=== PATIENT | male | born 1940 | race Caucasian/White ===

== ENCOUNTER 2024-03-10 10:01 | Emergency (ER) | payer MEDICARE, OTHER ==
[~2024-03-10] VITALS: Ht 182.9 cm; Wt 81.8 kg
[2024-03-10 10:10] VITALS: TEMP 97
[2024-03-10] MEDS ORDERED: SULFA (10:15)
[2024-03-10 13:59] LABS: BASOPHILS % (AUTO) 0.3 % (0-1); EOSINOPHILS % (AUTO) 0.4 % (0-6); HEMOGLOBIN 12.7 g/dl (14.0-17.9); LYMPHOCYTES # (AUTO) 0.6 X10'3 (1.1-4.8); LYMPHOCYTES % (AUTO) 5.4 % (21-51); MEAN CORPUSCULAR HGB CONC 31.7 g/dL (33.0-36.5); MEAN CORPUSCULAR VOLUME 78.8 FL (78-98); MEAN PLATELET VOLUME 7.2 FL (7.4-10.4); MONOCYTES # (AUTO) 0.3 X10'3 (0-0.9); MONOCYTES % (AUTO) 2.7 % (2-12); NEUTROPHILS # (AUTO) 10.4 X10'3 (1.8-7.7); NEUTROPHILS % (AUTO) 91.2 % (42-75); PLATELET COUNT 250 X10'3 (140-440); RED BLOOD COUNT 5.07 X10'6 (4.70-6.10); RED CELL DISTRIBUTION WIDTH 17.6 % (11.5-14.5); WHITE BLOOD COUNT 11.4 X10'3 (4.5-11.0)
[2024-03-10 14:25] LABS: ANION GAP 11 (8-16); BLOOD UREA NITROGEN 17 MG/DL (7-18); BUN/CREATININE RATIO 20.2 (10.0-20.0); CALCIUM 8.5 MG/DL (8.5-10.1); CHLORIDE 107 MMOL/L (99-107); CREATININE 0.84 MG/DL (0.60-1.10); GLUCOSE 139 MG/DL (70-104); PRO BRAIN NATRIURETIC PEPTIDE 230 PG/ML (0-450); SODIUM 145 MMOL/L (135-145); TOTAL CARBON DIOXIDE 27.1 MMOL/L (24-32); eCRCL 72 ML/MIN; eGFR 87 ML/MIN
[2024-03-10] MEDS ORDERED: APIX5TAB3 PO (14:57)
[2024-03-10] MEDS: apixaban 5mg tablet PO STA (15:27)
[2024-03-10 15:31] VITALS: BP 168/76; PULSE 67; RESP 16; O2SAT 97
== END 2024-03-10 15:41 | disposition home or self-care (01) ==
LOC: ER 10:03
DX: I82.421 Acute embolism and thrombosis of right iliac vein (principal); E78.00 Pure hypercholesterolemia, unspecified; I10 Essential (primary) hypertension
CPT/HCPCS: 36415; 71045; 80048; 83880; 85025; 93005; 93971; 99285

== ENCOUNTER 2024-06-18 09:45 | Inpatient (IN) | payer MEDICARE, OTHER ==
[~2024-06-18] VITALS: Ht 182.9 cm; Wt 82.7 kg
[~2024-06-18 09:45] MED LIST: APIX5TAB3 PO; SULFA
[2024-06-18 10:46] LABS: BASOPHILS # (AUTO) 0.1 X10'3 (0-0.2); BASOPHILS % (AUTO) 0.6 % (0-1); EOSINOPHILS # (AUTO) 0.2 X10'3 (0-0.9); EOSINOPHILS % (AUTO) 1.8 % (0-6); LYMPHOCYTES % (AUTO) 10.1 % (21-51); MEAN PLATELET VOLUME 6.8 FL (7.4-10.4); MONOCYTES # (AUTO) 0.5 X10'3 (0-0.9); MONOCYTES % (AUTO) 5.1 % (2-12); NEUTROPHILS # (AUTO) 7.8 X10'3 (1.8-7.7); NEUTROPHILS % (AUTO) 82.4 % (42-75); PLATELET COUNT 358 X10'3 (140-440); WHITE BLOOD COUNT 9.5 X10'3 (4.5-11.0)
[2024-06-18 10:53] LABS: ALANINE AMINOTRANSFERASE 13 U/L (12-78); ALBUMIN 2.9 G/DL (3.4-5.0); ALKALINE PHOSPHATASE 80 IU/L (46-116); ANION GAP 10 (8-16); ASPARTATE AMINO TRANSFERASE 10 U/L (10-37); BLOOD UREA NITROGEN 16 MG/DL (7-18); BUN/CREATININE RATIO 17.6 (10.0-20.0); CALCIUM 8.5 MG/DL (8.5-10.1); CHLORIDE 107 MMOL/L (99-107); CREATININE 0.91 MG/DL (0.60-1.10); GLUCOSE 110 MG/DL (70-104); LIPASE 22 U/L (16-77); POTASSIUM 3.7 MMOL/L (3.5-5.1); SODIUM 141 MMOL/L (135-145); TOTAL CARBON DIOXIDE 24.2 MMOL/L (24-32); TOTAL PROTEIN 5.8 G/DL (6.4-8.2); eCRCL 65 ML/MIN; eGFR 79 ML/MIN
[2024-06-18 11:02] LABS: BILIRUBIN,TOTAL 0.3 MG/DL (0.1-1.0)
[2024-06-18 11:12] LABS: HEMATOCRIT 25.5 % (42.0-52.0); HEMOGLOBIN 7.9 g/dl (14.0-17.9); MEAN CORPUSCULAR HEMOGLOBIN 21.2 PG (27.0-31.0); MEAN CORPUSCULAR HGB CONC 30.9 g/dL (33.0-36.5); MEAN CORPUSCULAR VOLUME 68.5 FL (78-98); RED BLOOD COUNT 3.72 X10'6 (4.70-6.10); RED CELL DISTRIBUTION WIDTH 19.9 % (11.5-14.5)
[2024-06-18 11:33] LABS: PLATELET ESTIMATE NORMAL; POLYCHROMASIA 1+
[2024-06-18 11:34] LABS: ANISOCYTOSIS 2+; ELLIPTOCYTES FEW; HYPOCHROMASIA 2+; MICROCYTOSIS 2+; TEAR DROP CELLS FEW
[2024-06-18 14:07] LABS: PROTHROMBIN TIME 10.6 SECONDS (9.0-12.0)
[2024-06-18] MEDS ORDERED: magnesium sulf-water 4G/100mL 100 ML IV PRN (14:55)
[2024-06-18] MEDS ORDERED: HYDROcodone/acetaminophen 5mg/325mg tablet PO PRN (14:55)
[2024-06-18] MEDS ORDERED: morphine 2 MG/ML inj. syringe IV PRN (14:55)
[2024-06-18] MEDS ORDERED: potassium Cl 40MEQ/1/2NS 520ml 520 ML IV PRN (14:55)
[2024-06-18] MEDS ORDERED: magnesium sulf-water 2g/50mL 50 ML IV PRN (14:55)
[2024-06-18] MEDS ORDERED: acetaminophen 325mg tablet PO PRN ×2 (14:55)
[2024-06-18] MEDS ORDERED: potassium Cl 20 mEq SR tablet PO PRN (14:55)
[2024-06-18] MEDS: normal saline 1000ml 1,000 ML IV SCH (15:14)
[2024-06-18 17:04] LABS: OCCULT BLOOD STOOL NEGATIVE (Neg)
[2024-06-18 17:14] LABS: BILIRUBIN,URINE NEGATIVE (Neg); CLARITY,URINE CLEAR (Clear); COLOR,URINE YELLOW (Yellow); GLUCOSE, URINE NEGATIVE (Neg); KETONES,URINE TRACE mg/dl (Neg); LEUKOCYTE ESTERASE ,URINE SMALL (Neg); NITRITES, URINE NEGATIVE (Neg); OCCULT BLOOD,URINE NEGATIVE (Neg); PH,URINE 6.5 (4.8-8.0); PROTEIN,URINE NEGATIVE (Neg); UROBILINOGEN,URINE 0.2 E.U/dL (0.2-1.0)
[2024-06-18 17:15] LABS: UA COLLECTION TYPE VOIDED
[2024-06-18 17:19] LABS: BACTERIA,URINE FEW /HPF (Neg); FINE GRANULAR CAST 0-3 /LPF (NEGATIVE); MUCUS STRANDS NONE SEEN /LPF (Neg); RBC,URINE 0-2 /HPF (0-2); SQUAMOUS EPITHELIAL CELL,UR NONE SEEN /LPF (FEW); TRANSITIONAL EPI CELLS,URINE FEW /HPF
[2024-06-18 18:44] LABS: ABSOLUTE RETICS # 79200 /CUMM (23000-93000); HEMATOCRIT 25.5 % (42.0-52.0); HEMOGLOBIN 7.6 g/dl (14.0-17.9); MEAN CORPUSCULAR HEMOGLOBIN 20.1 PG (27.0-31.0); MEAN CORPUSCULAR HGB CONC 29.9 g/dL (33.0-36.5); MEAN CORPUSCULAR VOLUME 67.3 FL (78-98); MEAN PLATELET VOLUME 6.8 FL (7.4-10.4); PLATELET COUNT 346 X10'3 (140-440); RED BLOOD COUNT 3.79 X10'6 (4.70-6.10); RETICULOCYTE % (AUTO) 2.1 % (0.5-1.5); WHITE BLOOD COUNT 7.5 X10'3 (4.5-11.0)
[2024-06-18] MEDS: K and/or MAG REPLACEMENT MC SCH (20:00)
[2024-06-18 20:04] LABS: FERRITIN 17 NG/ML (26-388)
[2024-06-18] MEDS: pantoprazole 40 MG vial IV SCH (20:22)
[2024-06-19] VITALS (7 sets, daily range): BP systolic 144–169; BP diastolic 53–83; PULSE 54–73; RESP 12–18; TEMP 97.4–98.6; O2SAT 96–98
[2024-06-19] MEDS ORDERED: NO HOME MEDS (06:09)
[2024-06-19 07:07] LABS: BASOPHILS # (AUTO) 0.1 X10'3 (0-0.2); BASOPHILS % (AUTO) 0.8 % (0-1); EOSINOPHILS # (AUTO) 0.2 X10'3 (0-0.9); EOSINOPHILS % (AUTO) 2.3 % (0-6); HEMATOCRIT 25.3 % (42.0-52.0); HEMOGLOBIN 7.6 g/dl (14.0-17.9); LYMPHOCYTES # (AUTO) 1.8 X10'3 (1.1-4.8); LYMPHOCYTES % (AUTO) 21.1 % (21-51); MEAN CORPUSCULAR HEMOGLOBIN 20.1 PG (27.0-31.0); MEAN CORPUSCULAR HGB CONC 29.8 g/dL (33.0-36.5); MEAN CORPUSCULAR VOLUME 67.6 FL (78-98); MEAN PLATELET VOLUME 6.8 FL (7.4-10.4); MONOCYTES # (AUTO) 0.7 X10'3 (0-0.9); MONOCYTES % (AUTO) 8.7 % (2-12); NEUTROPHILS # (AUTO) 5.6 X10'3 (1.8-7.7); NEUTROPHILS % (AUTO) 67.1 % (42-75); PLATELET COUNT 338 X10'3 (140-440); RED BLOOD COUNT 3.75 X10'6 (4.70-6.10); RED CELL DISTRIBUTION WIDTH 20.1 % (11.5-14.5); WHITE BLOOD COUNT 8.3 X10'3 (4.5-11.0)
[2024-06-19 07:25] LABS: ALANINE AMINOTRANSFERASE 11 U/L (12-78); ALBUMIN 2.6 G/DL (3.4-5.0); ALBUMIN/GLOBULIN RATIO 0.9 (1.1-1.5); ALKALINE PHOSPHATASE 70 IU/L (46-116); ANION GAP 6 (8-16); ASPARTATE AMINO TRANSFERASE 11 U/L (10-37); BILIRUBIN,TOTAL 0.3 MG/DL (0.1-1.0); BLOOD UREA NITROGEN 11 MG/DL (7-18); BUN/CREATININE RATIO 12.6 (10.0-20.0); CHLORIDE 111 MMOL/L (99-107); CHOL/HDL RATIO 4.4 (0.00-4.99); CHOLESTEROL 223 MG/DL (0-200); CREATININE 0.87 MG/DL (0.60-1.10); GLUCOSE 80 MG/DL (70-104); HDL CHOLESTEROL 51 MG/DL (35-60); MAGNESIUM 2.4 MG/DL (1.5-2.4); POTASSIUM 3.8 MMOL/L (3.5-5.1); SODIUM 142 MMOL/L (135-145); TOTAL CARBON DIOXIDE 24.9 MMOL/L (24-32); TOTAL PROTEIN 5.6 G/DL (6.4-8.2); TRIGLYCERIDES 99 MG/DL (20-135); eCRCL 68 ML/MIN; eGFR 83 ML/MIN
[2024-06-19 07:41] LABS: LDL CHOLESTEROL 150 MG/DL (50-100)
[2024-06-19] MEDS: CefTRIAXone 2gm/D5W 50ml BAG 50 ML IV SCH (08:56)
[2024-06-19] MEDS: ferrous sulfate 325mg tablet PO SCH (08:56)
[2024-06-19 09:54] LABS: % IRON SATURATION 3 % (11-46); IRON 9 UG/DL (53-167); TOTAL IRON BINDING CAPACITY 323 UG/DL (259-388)
[2024-06-19] MEDS ORDERED: iron dextran complex inj. 25 MG in normal saline 50ml IV soln 49.5 ML IV ONE (10:40)
[2024-06-19] MEDS: iron dextran complex inj. 25 MG in normal saline 100ml IV soln 100 ML IV ONE (11:15)
[2024-06-19] MEDS: iron dextran complex inj. 75 MG in normal saline 100ml IV soln 100 ML IV ONE (12:53)
[2024-06-19 21:05] LABS: HEMATOCRIT 30.4 % (42.0-52.0); HEMOGLOBIN 9.3 g/dl (14.0-17.9); MEAN CORPUSCULAR HEMOGLOBIN 21.4 PG (27.0-31.0); MEAN CORPUSCULAR HGB CONC 30.5 g/dL (33.0-36.5); MEAN CORPUSCULAR VOLUME 70.3 FL (78-98); MEAN PLATELET VOLUME 6.4 FL (7.4-10.4); PLATELET COUNT 319 X10'3 (140-440); RED BLOOD COUNT 4.32 X10'6 (4.70-6.10); RED CELL DISTRIBUTION WIDTH 22.7 % (11.5-14.5); WHITE BLOOD COUNT 8.3 X10'3 (4.5-11.0)
[2024-06-19 21:21] LABS: % IRON SATURATION 20 % (11-46); IRON 69 UG/DL (53-167); TOTAL IRON BINDING CAPACITY 345 UG/DL (259-388)
[2024-06-20] VITALS (15 sets, daily range): BP systolic 115–185; BP diastolic 47–90; PULSE 60–71; RESP 13–16; TEMP 97.9–98.9; O2SAT 95–98
[2024-06-20 06:00] LABS: BASOPHILS # (AUTO) 0.1 X10'3 (0-0.2); BASOPHILS % (AUTO) 0.7 % (0-1); EOSINOPHILS # (AUTO) 0.2 X10'3 (0-0.9); EOSINOPHILS % (AUTO) 3.2 % (0-6); HEMATOCRIT 29.1 % (42.0-52.0); HEMOGLOBIN 9.1 g/dl (14.0-17.9); LYMPHOCYTES % (AUTO) 13.2 % (21-51); MEAN CORPUSCULAR HEMOGLOBIN 21.8 PG (27.0-31.0); MEAN CORPUSCULAR HGB CONC 31.3 g/dL (33.0-36.5); MEAN CORPUSCULAR VOLUME 69.6 FL (78-98); MEAN PLATELET VOLUME 6.3 FL (7.4-10.4); MONOCYTES # (AUTO) 0.6 X10'3 (0-0.9); MONOCYTES % (AUTO) 8.1 % (2-12); NEUTROPHILS # (AUTO) 5.8 X10'3 (1.8-7.7); NEUTROPHILS % (AUTO) 74.8 % (42-75); PLATELET COUNT 313 X10'3 (140-440); RED BLOOD COUNT 4.19 X10'6 (4.70-6.10); RED CELL DISTRIBUTION WIDTH 22.8 % (11.5-14.5); WHITE BLOOD COUNT 7.8 X10'3 (4.5-11.0)
[2024-06-20 06:17] LABS: ALANINE AMINOTRANSFERASE 12 U/L (12-78); ALBUMIN 2.6 G/DL (3.4-5.0); ALBUMIN/GLOBULIN RATIO 0.9 (1.1-1.5); ALKALINE PHOSPHATASE 73 IU/L (46-116); ANION GAP 9 (8-16); ASPARTATE AMINO TRANSFERASE 15 U/L (10-37); BILIRUBIN,TOTAL 0.4 MG/DL (0.1-1.0); BLOOD UREA NITROGEN 8 MG/DL (7-18); CALCIUM 7.6 MG/DL (8.5-10.1); CHLORIDE 110 MMOL/L (99-107); GLUCOSE 84 MG/DL (70-104); POTASSIUM 3.3 MMOL/L (3.5-5.1); SODIUM 141 MMOL/L (135-145); TOTAL CARBON DIOXIDE 22.4 MMOL/L (24-32); TOTAL PROTEIN 5.4 G/DL (6.4-8.2); eCRCL 74 ML/MIN; eGFR > 90 ML/MIN
[2024-06-20] MEDS: CefTRIAXone 2gm/D5W 50ml BAG 50 ML IV SCH (08:00)
[2024-06-20] MEDS: iron dextran complex inj. 100 MG in normal saline 100ml IV soln 98 ML IV SCH (08:23)
[2024-06-20] MEDS: HYDROcodone/acetaminophen 10/325mg tab PO PRN (11:42)
[2024-06-20] MEDS ORDERED: MIDAZolam 1 MG/ML 5ML VIAL ONE (14:47)
[2024-06-20] MEDS ORDERED: LIDOcaine 2% Viscous 15ml cup ONE (14:47)
[2024-06-20] MEDS ORDERED: fentaNYL/PF 50MCG/1 ML 2ML syringe ONE (14:47)
[2024-06-20] MEDS ORDERED: simethicone 40mg/0.6ml oral drops 30ml ONE (15:20)
[2024-06-20] MEDS: potassium Cl 20 mEq SR tablet PO PRN (19:40)
[2024-06-21 05:40] LABS: BASOPHILS # (AUTO) 0.1 X10'3 (0-0.2); BASOPHILS % (AUTO) 0.8 % (0-1); EOSINOPHILS # (AUTO) 0.3 X10'3 (0-0.9); EOSINOPHILS % (AUTO) 2.6 % (0-6); HEMATOCRIT 31.8 % (42.0-52.0); HEMOGLOBIN 9.8 g/dl (14.0-17.9); LYMPHOCYTES # (AUTO) 1.2 X10'3 (1.1-4.8); LYMPHOCYTES % (AUTO) 11.2 % (21-51); MEAN CORPUSCULAR HEMOGLOBIN 21.6 PG (27.0-31.0); MEAN CORPUSCULAR HGB CONC 30.9 g/dL (33.0-36.5); MEAN CORPUSCULAR VOLUME 69.8 FL (78-98); MEAN PLATELET VOLUME 6.4 FL (7.4-10.4); MONOCYTES # (AUTO) 0.7 X10'3 (0-0.9); MONOCYTES % (AUTO) 6.6 % (2-12); NEUTROPHILS # (AUTO) 8.4 X10'3 (1.8-7.7); NEUTROPHILS % (AUTO) 78.8 % (42-75); PLATELET COUNT 343 X10'3 (140-440); RED BLOOD COUNT 4.56 X10'6 (4.70-6.10); RED CELL DISTRIBUTION WIDTH 23.1 % (11.5-14.5); WHITE BLOOD COUNT 10.7 X10'3 (4.5-11.0)
[2024-06-21 06:00] VITALS: BP 157/54; PULSE 74; RESP 14; TEMP 97.3; O2SAT 97
[2024-06-21 06:00] LABS: ALANINE AMINOTRANSFERASE 12 U/L (12-78); ALBUMIN 2.6 G/DL (3.4-5.0); ALBUMIN/GLOBULIN RATIO 0.8 (1.1-1.5); ALKALINE PHOSPHATASE 81 IU/L (46-116); ANION GAP 10 (8-16); ASPARTATE AMINO TRANSFERASE 8 U/L (10-37); BILIRUBIN,TOTAL 0.2 MG/DL (0.1-1.0); BLOOD UREA NITROGEN 10 MG/DL (7-18); CALCIUM 8.5 MG/DL (8.5-10.1); CHLORIDE 109 MMOL/L (99-107); CREATININE 0.83 MG/DL (0.60-1.10); GLUCOSE 84 MG/DL (70-104); MAGNESIUM 2.2 MG/DL (1.5-2.4); SODIUM 141 MMOL/L (135-145); TOTAL CARBON DIOXIDE 22.3 MMOL/L (24-32); TOTAL PROTEIN 5.7 G/DL (6.4-8.2); eCRCL 71 ML/MIN; eGFR 88 ML/MIN
[2024-06-21 08:00] VITALS: RESP 14; O2SAT 97
[2024-06-21] MEDS: iron dextran complex inj. 100 MG in normal saline 100ml IV soln 100 ML IV SCH (09:26)
[2024-06-21 09:29] LABS: PLATELET ESTIMATE NORMAL
[2024-06-21 09:30] LABS: HYPOCHROMASIA 1+
[2024-06-21 09:31] LABS: ANISOCYTOSIS 3+; MICROCYTOSIS 2+; POLYCHROMASIA FEW; TEAR DROP CELLS FEW
[2024-06-21 10:00] VITALS: BP 133/51; PULSE 75; RESP 16; TEMP 98.8; O2SAT 95
[2024-06-21] MEDS ORDERED: iohexol 300mg/ml 100ml inj. ONE (16:16)
[2024-06-21 18:00] VITALS: BP 193/71; PULSE 93; RESP 18; TEMP 99; O2SAT 97
[2024-06-21] MEDS: hydrALAZINE 20mg/ml inj. IV PRN (19:26)
[2024-06-21 22:00] VITALS: BP 109/53; PULSE 77; RESP 14; TEMP 98.4; O2SAT 96
[2024-06-22 06:00] VITALS: BP 112/61; PULSE 74; RESP 13; TEMP 97.3; O2SAT 96
[2024-06-22 06:28] LABS: BASOPHILS % (AUTO) 0.4 % (0-1); EOSINOPHILS # (AUTO) 0.3 X10'3 (0-0.9); HEMATOCRIT 30.5 % (42.0-52.0); HEMOGLOBIN 9.5 g/dl (14.0-17.9); LYMPHOCYTES % (AUTO) 9.3 % (21-51); MEAN CORPUSCULAR HEMOGLOBIN 22.1 PG (27.0-31.0); MEAN CORPUSCULAR HGB CONC 31.2 g/dL (33.0-36.5); MEAN CORPUSCULAR VOLUME 70.7 FL (78-98); MEAN PLATELET VOLUME 6.6 FL (7.4-10.4); MONOCYTES % (AUTO) 8.9 % (2-12); NEUTROPHILS # (AUTO) 8.4 X10'3 (1.8-7.7); NEUTROPHILS % (AUTO) 78.4 % (42-75); PLATELET COUNT 302 X10'3 (140-440); RED BLOOD COUNT 4.31 X10'6 (4.70-6.10); RED CELL DISTRIBUTION WIDTH 24.2 % (11.5-14.5); WHITE BLOOD COUNT 10.8 X10'3 (4.5-11.0)
[2024-06-22 06:57] LABS: ALANINE AMINOTRANSFERASE 11 U/L (12-78); ALBUMIN 2.6 G/DL (3.4-5.0); ALBUMIN/GLOBULIN RATIO 0.9 (1.1-1.5); ALKALINE PHOSPHATASE 73 IU/L (46-116); ANION GAP 8 (8-16); ASPARTATE AMINO TRANSFERASE 9 U/L (10-37); BILIRUBIN,TOTAL 0.3 MG/DL (0.1-1.0); BLOOD UREA NITROGEN 9 MG/DL (7-18); BUN/CREATININE RATIO 11.7 (10.0-20.0); CALCIUM 8.3 MG/DL (8.5-10.1); CHLORIDE 110 MMOL/L (99-107); CREATININE 0.77 MG/DL (0.60-1.10); GLUCOSE 106 MG/DL (70-104); MAGNESIUM 2.1 MG/DL (1.5-2.4); POTASSIUM 3.3 MMOL/L (3.5-5.1); SODIUM 142 MMOL/L (135-145); TOTAL CARBON DIOXIDE 23.9 MMOL/L (24-32); TOTAL PROTEIN 5.5 G/DL (6.4-8.2); eCRCL 77 ML/MIN; eGFR > 90 ML/MIN
[2024-06-22 08:00] VITALS: RESP 18; O2SAT 95
[2024-06-22] MEDS: morphine 2 MG/ML inj. syringe IV PRN (09:44)
[2024-06-22 10:00] VITALS: BP 132/63; PULSE 76; RESP 20; TEMP 97.9; O2SAT 95
[2024-06-22 18:00] VITALS: BP 133/48; PULSE 79; RESP 14; TEMP 98.9; O2SAT 94
[2024-06-22] MEDS ORDERED: potassium Cl 40MEQ/1/2NS 520ml 520 ML IV PRN (20:05)
[2024-06-22] MEDS ORDERED: potassium Cl 20 mEq SR tablet PO PRN (20:05)
[2024-06-22] MEDS ORDERED: magnesium sulf-water 2g/50mL 50 ML IV PRN (20:05)
[2024-06-22] MEDS ORDERED: magnesium Cl slow-release 64mg tablet PO PRN (20:05)
[2024-06-22] MEDS ORDERED: magnesium sulf-water 4G/100mL 100 ML IV PRN (20:05)
[2024-06-22] MEDS: potassium Cl 20 mEq SR tablet PO PRN (20:15)
[2024-06-22] MEDS: pantoprazole 40mg Tablet.DR PO SCH (20:16)
[2024-06-22 22:00] VITALS: BP 168/73; PULSE 79; RESP 18; TEMP 98.8; O2SAT 96
[2024-06-23 06:00] VITALS: BP 152/68; PULSE 74; RESP 13; TEMP 97.2; O2SAT 96
[2024-06-23 07:46] LABS: BASOPHILS # (AUTO) 0.1 X10'3 (0-0.2); BASOPHILS % (AUTO) 0.5 % (0-1); EOSINOPHILS # (AUTO) 0.4 X10'3 (0-0.9); EOSINOPHILS % (AUTO) 3.5 % (0-6); HEMATOCRIT 30.3 % (42.0-52.0); HEMOGLOBIN 9.3 g/dl (14.0-17.9); LYMPHOCYTES # (AUTO) 0.9 X10'3 (1.1-4.8); LYMPHOCYTES % (AUTO) 8.5 % (21-51); MEAN CORPUSCULAR HGB CONC 30.8 g/dL (33.0-36.5); MEAN CORPUSCULAR VOLUME 71.4 FL (78-98); MEAN PLATELET VOLUME 6.9 FL (7.4-10.4); MONOCYTES # (AUTO) 0.8 X10'3 (0-0.9); MONOCYTES % (AUTO) 7.5 % (2-12); NEUTROPHILS # (AUTO) 8.2 X10'3 (1.8-7.7); PLATELET COUNT 286 X10'3 (140-440); RED BLOOD COUNT 4.25 X10'6 (4.70-6.10); RED CELL DISTRIBUTION WIDTH 24.8 % (11.5-14.5); WHITE BLOOD COUNT 10.3 X10'3 (4.5-11.0)
[2024-06-23] MEDS: K and/or MAG REPLACEMENT MC SCH (08:00)
[2024-06-23 08:02] LABS: ALANINE AMINOTRANSFERASE 13 U/L (12-78); ALBUMIN 2.4 G/DL (3.4-5.0); ALBUMIN/GLOBULIN RATIO 0.8 (1.1-1.5); ALKALINE PHOSPHATASE 69 IU/L (46-116); ANION GAP 6 (8-16); ASPARTATE AMINO TRANSFERASE 12 U/L (10-37); BILIRUBIN,TOTAL 0.3 MG/DL (0.1-1.0); BLOOD UREA NITROGEN 8 MG/DL (7-18); BUN/CREATININE RATIO 9.6 (10.0-20.0); CALCIUM 8.2 MG/DL (8.5-10.1); CHLORIDE 113 MMOL/L (99-107); CREATININE 0.83 MG/DL (0.60-1.10); GLUCOSE 105 MG/DL (70-104); POTASSIUM 4.2 MMOL/L (3.5-5.1); SODIUM 143 MMOL/L (135-145); TOTAL CARBON DIOXIDE 24.1 MMOL/L (24-32); TOTAL PROTEIN 5.3 G/DL (6.4-8.2); eCRCL 71 ML/MIN; eGFR 88 ML/MIN
[2024-06-23] MEDS: ondansetron/PF 4mg/2ml inj IV PRN (08:48)
[2024-06-23 09:18] LABS: PLATELET ESTIMATE NORMAL
[2024-06-23 09:19] LABS: ANISOCYTOSIS 3+; ELLIPTOCYTES FEW; HYPOCHROMASIA 1+; MICROCYTOSIS 1+; POLYCHROMASIA FEW; SCHISTOCYTES FEW
[2024-06-23 10:00] VITALS: BP 136/68; PULSE 80; RESP 14; TEMP 98.2; O2SAT 96
[2024-06-23] MEDS ORDERED: lactulose 20gm/30ml cup PO PRN (10:25)
[2024-06-23] MEDS ORDERED: magnesium hydroxide 30ml (MOM) UD suspension PO PRN (10:25)
[2024-06-23] MEDS: atorvastatin 20mg tablet PO SCH (11:43)
[2024-06-23 19:00] VITALS: BP 125/74; PULSE 69; RESP 18; TEMP 98.3; O2SAT 96
[2024-06-23] MEDS: docusate sod 100mg capsule PO SCH (19:44)
[2024-06-23] MEDS: apixaban 2.5mg tablet PO SCH (20:18)
[2024-06-23 22:00] VITALS: BP 144/62; PULSE 66; RESP 16; TEMP 98.5; O2SAT 95
[2024-06-24 06:00] VITALS: BP 145/47; PULSE 69; RESP 17; TEMP 98; O2SAT 94
[2024-06-24 08:00] VITALS: RESP 17; O2SAT 94
[2024-06-24 10:00] VITALS: BP 132/63; PULSE 71; RESP 15; TEMP 97.9; O2SAT 96
[2024-06-24 17:08] VITALS: RESP 16
[2024-06-24] MEDS ORDERED: APIX2.5T PO (17:15)
[2024-06-24] MEDS ORDERED: ATOR20TA66 PO (17:15)
== END 2024-06-24 17:30 | disposition home health service (06) | DRG 378 ==
LOC: ER 09:45 → ED HOLD 14:59 → ORTHO 4S 06-19 14:16
PROVIDERS: ADMIT Nurse Practitioner Family; ATTEND Nurse Practitioner Family
PROC: 30233N1 Transfusion of Nonautologous Red Blood Cells into Peripheral Vein, Percutaneous Approach (ICD-10-PCS; 2024-06-19)
PROC: 0W3P8ZZ Control Bleeding in Gastrointestinal Tract, Via Natural or Artificial Opening Endoscopic (ICD-10-PCS; principal; 2024-06-20)
DX: K31.811 Angiodysplasia of stomach and duodenum with bleeding (principal); D62 Acute posthemorrhagic anemia; N13.8 Other obstructive and reflux uropathy; I82.411 Acute embolism and thrombosis of right femoral vein; K21.01 Gastro-esophageal reflux disease with esophagitis, with bleeding; E78.00 Pure hypercholesterolemia, unspecified; I10 Essential (primary) hypertension; E87.6 Hypokalemia; N40.1 Benign prostatic hyperplasia with lower urinary tract symptoms; Z88.2 Allergy status to sulfonamides; Z79.01 Long term (current) use of anticoagulants; Z86.718 Personal history of other venous thrombosis and embolism; Z87.891 Personal history of nicotine dependence
CPT/HCPCS: 36415; 36430; 43255; 74178; 76770; 80053; 80061; 81001; 82272; 82728; 83540; 83550; 83690; 83735; 84153; 85008; 85025; 85027; 85045; 85610; 86885; 86900; 86901; 86920; 87081; 87088; 93970; 97161; 97530; 99152; 99285; A4314; A4620; A6258; A6449; A6590; G0378; J0360; J0696; J1750; J2250; J2270; J2405; J2470; J3010; J7030; J7040; P9016; Q9967